=== PATIENT | female | born 1995 | race Caucasian/White ===

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

== ENCOUNTER → 2017-05-26 | Outpatient (CLI) | payer OTHER ==
[2017-05-29 17:08] LABS: VARICELLA ZOS VIR IGM AB <=0.90 (<=0.90)
== END | disposition home or self-care (01) ==
LOC: C.LAB 13:21
PROVIDERS: ATTEND Pediatrics
DX: Z00.00 Encounter for general adult medical examination without abnormal findings (principal)

== ENCOUNTER → 2017-05-31 | Outpatient (CLI) | payer OTHER | END | disposition home or self-care (01) | LOC: C.RDSM 14:51 | PROVIDERS: ATTEND Family Medicine | DX: M19.011 Primary osteoarthritis, right shoulder (principal) ==

== ENCOUNTER → 2017-07-14 | Outpatient (CLI) | payer OTHER ==
[~2017-07-14] MED LIST changes: +GADAVIST IV PRN
--- NOTE | 2017-07-14 13:48 | DIAGNOSTIC IMAGING REPORT ---
FLUOROSCOPICALLY GUIDED RIGHT SHOULDER ARTHROGRAM PRE-MRI CLINICAL HISTORY: Right shoulder pain COMPARISON STUDY: L radiographic study of the chromic clavicular joints dated 05/31/2017 FINDINGS: A timeout was performed. The risks the procedure were explained the patient and informed consent was obtained. Patient prepped and draped in sterile fashion. The skin was anesthetized 1% lidocaine. The 22-gauge spinal needle was introduced the joint capsule. A mixture of Optiray 300 and gadolinium was instilled under fluoroscopic guidance. Fluoroscopic spot film confirmed intra-articular location. 30 seconds of fluoroscopic time was utilized. A single fluoroscopic spot image was acquired. The patient's of the MRI suite for further imaging. IMPRESSION: Successful fluoroscopically guided right shoulder arthrogram pre-MRI Electronically signed by: Matt Navarrete M.D. 07/14/2017 1:47 PM Dictated Date/Time: 07/14/2017 1:45 PM
--- NOTE | 2017-07-14 14:09 | DIAGNOSTIC IMAGING REPORT ---
MRI ARTHROGRAM OF THE RIGHT SHOULDER CLINICAL HISTORY: Right shoulder pain and limited range of motion. Possible weightlifting injury. COMPARISON STUDY: Acromioclavicular joint radiographs May 31, 2017. TECHNIQUE: Following a fluoroscopically guided arthrogram and utilizing a 1.5 [place] magnet, multiplanar, multiecho imaging of the right shoulder was performed without intravenous contrast. FINDINGS: Alignment of the right shoulder is anatomic. There is no fracture or marrow replacement. No cartilage abnormality is present. Distention of the joint space is excellent. The glenoid labrum is intact. There is no rotator cuff tear. There is no contrast within the subacromial/subdeltoid bursa. The glenohumeral ligaments appear intact. The proximal long head of the biceps tendon is intact. No mass or fluid collection is shown adjacent to the right shoulder. IMPRESSION: Unremarkable MRI arthrogram of the right shoulder. No internal derangement identified. Electronically signed by: Easton Jo M.D. 07/14/2017 2:07 PM Dictated Date/Time: 07/14/2017 1:55 PM
== END | disposition home or self-care (01) ==
LOC: C.MRIBC 12:47
PROVIDERS: ATTEND Family Medicine
DX: S49.91XA Unspecified injury of right shoulder and upper arm, initial encounter (principal); S49.90XA Unspecified injury of shoulder and upper arm, unspecified arm, initial encounter; X58.XXXA Exposure to other specified factors, initial encounter

== ENCOUNTER → 2017-07-19 | Outpatient (CLI) | payer OTHER ==
[~2017-07-19] MED LIST changes: -GADAVIST IV PRN
== END | disposition home or self-care (01) ==
LOC: C.LABSPEC 16:38
PROVIDERS: ATTEND Physician Assistant
DX: Z30.430 Encounter for insertion of intrauterine contraceptive device (principal)

== ENCOUNTER → 2017-07-31 | Outpatient (CLI) | payer OTHER ==
[2017-08-02 10:25] LABS: VARICELLA ZOS VIR IGG VALUE 160.5 INDEX
== END | disposition home or self-care (01) ==
LOC: C.LABBFT 12:51
PROVIDERS: ATTEND Pediatrics
DX: Z00.00 Encounter for general adult medical examination without abnormal findings (principal)

== ENCOUNTER 2024-11-26 20:15 | Inpatient (IN) ==
[2024-11-26] MEDS ORDERED: LIDOCAINE 1% LOCAL 20 ML VIAL INFIL PRN (20:34)
[2024-11-26] MEDS: LACTATED RINGER'S 1,000 ML IV PRN (20:42)
--- NOTE | 2024-11-26 20:56 | History & Physical Report ---
Date of Service November 26, 2024 Assessment & Plan (1) SROM (spontaneous rupture of membranes): Plan: 29 yo at 38 5/7 wga presents w/ srom/labor VSS Fetus cat 1 Labor - augment prn GBS neg desires epidural History of Present Illness Chief Complaint: LOF Primary Care Provider: ALAYNA Hawkins 29 yo at 38 5/7 wga presents w/ SROM around 730pm and subsequent worsening of ctx. +FM and ctx, denies vb PNI: None Past staffing associate hx: G1 2022 G2 current regular cycles denies hx stis Allergies Allergy/AdvReac Type Severity Reaction Status Date / Time Penicillins Allergy Severe RASH AND Verified 11/26/24 20:44 SWELLING Sulfa (Sulfonamide Allergy Severe RASH AND Verified 11/26/24 20:44 Antibiotics) SWELLING amoxicillin AdvReac Severe RASH AND Verified 11/26/24 20:44 SWELLING cefdinir AdvReac Severe RASH AND Verified 11/26/24 20:44 SWELLING Home Medications Medication Instructions Recorded Confirmed Type prenat.vits,mimi,eue-goax-gowkl 1 tab PO DAILY 09/17/21 11/26/24 History pantoprazole 20 mg tablet,delayed 20 mg PO QAM #30 tabs 01/27/23 11/26/24 Rx release Saccharomyces boulardii [Probiotic PO 05/06/24 11/21/24 History (S.boulardii)] Patient History Medical History (Updated 11/26/24 @ 20:56 by Vee Alcazar MD) Varicella vaccination Chronic tonsillar hypertrophy Recurrent acute tonsillitis Lump of right breast Endometriosis Dysmenorrhea Arthralgia of hands, bilateral Left breast lump Abdominal pain Constipation Tenesmus Hernia Anxiety GERD (gastroesophageal reflux disease) Irritable bowel syndrome (IBS) Acne ADHD (attention deficit hyperactivity disorder) History of postoperative nausea and vomiting Hernia denies Anxiety IBS (irritable bowel syndrome) GERD (gastroesophageal reflux disease) ADHD History of COVID-05 Mar 2023 Tonsillitis reason for procedure History of ovarian cyst Frequent headaches Migraines Surgical History S/P laparoscopy History of esophagogastroduodenoscopy (EGD) History of colonoscopy H/O wisdom tooth extraction Family History Mother Rheumatoid arthritis Endometriosis Asthma Grandmother (Paternal) Ovarian cancer Grandmother (Maternal) Diabetes Hypertension Slow to wake up after anesthesia Grandfather (Maternal) Prostate cancer Denies family history of Crohn's disease Breast cancer Colorectal cancer Ulcerative colitis Social History Smoking Status: Never smoker Second Hand Exposure: No; Do You Dip or Chew Tobacco: No; Hx Alcohol Use: No Hx Substance Use: No Preferred Language: Taiwanese Communication Ability: Effective Visual Impairment: No Limitations Hearing Ability: Normal 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 Beliefs That Will Affect Care: None marital status: marital status details: Judd Giraldo (30) [phone] Current Living Situation: Spouse Current Living Situation Comment: lives with and child current occupational status: employed current occupation: [employer] Other Information That Helps Us Care for You: No Feels Safe at Home: Yes Safety Concerns: Feels Safe At This Time Childhood Exposure to Second-Hand Smoke: No Diet: regular during the past year weight has: remained stable Dental Care, Regularly: Yes Physical Activity Frequency: 5-6 Times per Week Seatbelt Use: always Sunscreen Use: Yes Assistive Devices: None Physical Exam Genitourinary: OB Exam Monitor Tracing: + external FHT monitor used, + external uterine monitor used (q3-4) and + category I (130/mod/+accel/-decel) SVE 4/90/-2 by RN, grossly ruptured Results & Data Vital Signs (Past 12 Hours) Vital Signs Temp Pulse Resp BP O2 Del Method 11/26/24 20:45 98.1 F 18 Room Air 11/26/24 20:30 81 135/70 Laboratory Results OB Labs: Blood Type A Positive 05/09/24 Antibody Screen NEGATIVE 05/09/24 Hgb 11.8 g/dl (12.0-16.0) L 09/11/24 Hct 34.3 % (37.0-47.0) L 09/11/24 MCV 93.0 fL (80.0-100.0) 05/09/24 Plt Count 221 K/uL (130-400) 05/09/24 VZV IgG Antibody 160.50 INDEX 07/31/17 Rubella IgG Antibody Immune (Immune) 05/09/24 RPR Nonreactive (Nonreactive) 09/24/21 Treponema pallidum Ab Negative (Negative) 09/11/24 Hep Bs Antigen Prelim Positive (Negative) A 05/09/24 Hep Bs Antigen NON-REACTIVE (NON-REACTIVE) 05/09/24 Hepatitis C Antibody Negative (Negative) 05/09/24 Hepatitis C Ab (EIA) NON-REACTIVE (NON-REACTIVE) 09/24/21 HIV 1&2 Ab/P24 Ag 4thGn Prelim Positive (Negative) A 05/09/24 HIV (1&2) Ag & Ab Conf NON-REACTIVE (NON-REACTIVE) 05/09/24 Glucose 1 Hr 50 gm 124 mg/dl (70-130) 09/11/24 Maternal Serum AFP 43.0 ng/mL 06/21/24 OB Optional Labs: Chlamydia trachomatis RNA Not Detected (NotDetected) 05/09/24 Neisseria gonorrhoeae RNA Not Detected (NotDetected) 05/09/24 Thyroid Stimulating Hormone (TSH) 0.907 uIu/ml (0.300-4.500) 01/31/19 Alpha Fetoprotein Triple Screen SEE NOTE 06/21/24 Labs Reviewed: cf/sma-negative prior --mln cfDNA low risk--mln GBS neg Diagnostic Findings posterior plac Coding Level of Care Code None Diagnoses SROM (spontaneous rupture of membranes)
[2024-11-26] MEDS ORDERED: BUPIVACAINE 0.25% PF 30 ML VIAL EPI PRN (21:07)
[2024-11-26] MEDS ORDERED: NALOXONE HCL 0.4 MG/1 ML VIAL/CARP IV PRN (21:07)
[2024-11-26] MEDS ORDERED: ROPIVACAINE 0.5% PF 5 MG/ML 20 ML VIAL EPI PRN (21:07)
[2024-11-26] MEDS ORDERED: LIDOCAINE 2% MPF LOCAL 5 ML VIAL EPI PRN (21:07)
[2024-11-26] MEDS ORDERED: diphenhydrAMINE 50 MG/ML VIAL IV PRN (21:07)
[2024-11-26] MEDS ORDERED: NALBUPHINE HCL INJ 10 MG/ML AMP IV PRN (21:07)
[2024-11-26] MEDS ORDERED: NALOXONE HCL 1 MG in SODIUM CHLORIDE 0.9% 1,000 ML IV PRN (21:07)
[2024-11-26] MEDS ORDERED: SODIUM CHLORIDE 0.9% PF INJ 10 ML VIAL EPI PRN (21:07)
--- NOTE | 2024-11-26 21:07 | Anesthesiology Consultation ---
Date of Service November 26, 2024 Assessment & Plan (1) Encounter for pre-operative examination: Chart Review Chart Review: Patient NOT seen in Pre Admission Testing and Acceptable Risk for Labor Epidural Consults Requested none History Height/Weight Height: 5 ft 3 in Weight: 77.564 kg Allergies Allergy/AdvReac Type Severity Reaction Status Date / Time Penicillins Allergy Severe RASH AND Verified 11/26/24 20:44 SWELLING Sulfa (Sulfonamide Allergy Severe RASH AND Verified 11/26/24 20:44 Antibiotics) SWELLING amoxicillin AdvReac Severe RASH AND Verified 11/26/24 20:44 SWELLING cefdinir AdvReac Severe RASH AND Verified 11/26/24 20:44 SWELLING Medications Home Medications Medication Instructions Recorded Confirmed Last Taken prenat.vits,mimi,yoy-btth-xueck 1 tab PO DAILY 09/17/21 11/26/24 11/26/24 pantoprazole 20 mg tablet,delayed 20 mg PO QAM #30 tabs 01/27/23 11/26/24 11/26/24 release Saccharomyces boulardii [Probiotic PO 05/06/24 11/21/24 Unknown (S.boulardii)] Active Medications Generic Name Dose Route Start Last Admin Trade Name Freq PRN Reason Stop Dose Admin Lactated Ringer's 1,000 mls @ 125 mls/hr 11/26/24 20:34 11/26/24 20:42 Lr IV 11/28/24 20:33 999 mls/hr .Q8H PRN Administration L&D Protocol Protocol Past Medical History Medical History Varicella vaccination Chronic tonsillar hypertrophy Recurrent acute tonsillitis Lump of right breast Endometriosis Dysmenorrhea Arthralgia of hands, bilateral Left breast lump Abdominal pain Constipation Tenesmus Hernia Anxiety GERD (gastroesophageal reflux disease) Irritable bowel syndrome (IBS) Acne ADHD (attention deficit hyperactivity disorder) History of postoperative nausea and vomiting Hernia denies Anxiety IBS (irritable bowel syndrome) GERD (gastroesophageal reflux disease) ADHD History of COVID-05 Mar 2023 Tonsillitis reason for procedure History of ovarian cyst Frequent headaches Migraines Past Family History Family History Mother Rheumatoid arthritis Endometriosis Asthma Grandmother (Paternal) Ovarian cancer Grandmother (Maternal) Diabetes Hypertension Slow to wake up after anesthesia Grandfather (Maternal) Prostate cancer Denies family history of Crohn's disease Breast cancer Colorectal cancer Ulcerative colitis Past Surgical History Surgical History S/P laparoscopy History of esophagogastroduodenoscopy (EGD) History of colonoscopy H/O wisdom tooth extraction Social History Smoking Status: Never smoker Do You Dip or Chew Tobacco: No Hx Alcohol Use: No Alcohol type: wine and hard liquor alcohol intake frequency: a few times a month Hx Substance Use: No substance use type: does not use Physical Exam Vital Signs Last Vital Signs Temp 98.1 F 11/26/24 20:45 Pulse 87 11/26/24 21:03 Resp 18 11/26/24 20:45 BP 135/70 11/26/24 20:30 Pulse Ox 96 11/26/24 21:03 O2 Del Method Room Air 11/26/24 20:45
[2024-11-26 21:11] LABS: Hematocrit (blood only) 35.9 % (37.0-47.0); Hemoglobin 12.5 g/dl (12.0-16.0); Mean Corpuscular Hemoglobin 32.4 pg (25.0-34.0); Mean Corpuscular Volume 93.0 fL (80.0-100.0); Platelet Count 164 K/uL (130-400); RDW Standard Deviation 45.6 fL (36.4-46.3); Red Blood Count 3.86 M/uL (4.20-5.40); White Blood Count 12.45 K/ul (4.8-10.8)
[2024-11-26] MEDS: ONDANSETRON INJ 2 MG/ML 2 ML VIAL IV PRN (21:12)
[2024-11-26] MEDS: BUPIVACAINE 0.25% PF 30 ML VIAL ONE (21:24)
[2024-11-26] MEDS: fentANYL 2 MCG/ML BUPIVacaine 0.125%-NSS 100ML BAG EPI PRN (21:26)
[2024-11-26] MEDS: SODIUM CHLORIDE 0.9% PF INJ 10 ML VIAL ONE (21:51)
[2024-11-26] MEDS: fentANYL 2 MCG/ML BUPIVacaine 0.125%-NSS 100ML BAG ONE (21:51)
[2024-11-26] MEDS: ONDANSETRON INJ 2 MG/ML 2 ML VIAL ONE (21:52)
[2024-11-26] MEDS: LIDOCAINE 2%/EPINEPHRINE 1:200,000 20 ML PF ONE (21:52)
[2024-11-26] MEDS: BUPIVACAINE 0.25% PF 30 ML VIAL EPI STA (21:52)
[2024-11-26] MEDS: LIDOCAINE 2%/EPINEPHRINE 1:200,000 20 ML PF EPI STA (21:52)
[2024-11-26] MEDS: SODIUM CHLORIDE 0.9% PF INJ 10 ML VIAL EPI STA (21:52)
[2024-11-26] MEDS ORDERED: OXYTOCIN 30 UNITS/NSS 30 UNITS/500 ML BAG IV PRN (22:00)
[2024-11-26] MEDS: OXYTOCIN 30 UNITS/NSS 30 UNITS/500 ML BAG IV PRN (23:49)
--- NOTE | 2024-11-27 00:01 | Delivery Summary ---
Vaginal Delivery Summary Date of Service November 26, 2024 Vaginal Delivery Summary [facility] PREOPERATIVE DIAGNOSIS: 1. Single intrauterine at 38 5/7 wga 2. SROM POSTOPERATIVE DIAGNOSIS: 1. Single intrauterine at 38 5/7 wga 2. SROM 3. Delivered PROCEDURE: 1. Normal spontaneous vaginal delivery. SURGEON: Vee Alcazar MD ANESTHESIA: Epidural. QUANTITATIVE BLOOD LOSS: 150 mL FLUIDS: Continuous LR. URINE OUTPUT: 600cc by straight cath after procedure COMPLICATIONS: None. CONDITION: Stable. INDICATIONS: 29 yo at 38 5/7 wga presented with srom and 4cm on arrival. She received an epidural for pain control and progressed to complete and desired to push FINDINGS: A viable male , weight pending with Apgars of 8 and 9 at 1 and 5 minutes respectively. SPECIMEN: Cord blood OPERATIVE REPORT: The patient progressed to 10 cm, 100% effaced and +2 station, pushed over intact perineum with anesthesia to deliver a viable male infant, weight and Apgars as above. Head of delivered in THERESA position. No nuchal cord was present. Body and shoulders were delivered without difficulty. was delivered to maternal abdomen and nursing staff. Delayed cord clamping was performed for 60 seconds. Cord was clamped and cut. Cord blood was obtained. Placenta delivered spontaneously intact with 3-vessel cord. IV oxytocin and fundal massage were given for excellent hemostasis. Vagina, cervix, perineum, and placenta were inspected. No lacerations were noted. Sponge and needle counts correct x2. No sponges were left behind. Mother and stable in immediate period. [facility] Vaginal Delivery Charge Vaginal Delivery Codes: 73659 global code for the antepartum, delivery, and post- Delivery Type Details: [facility]
[2024-11-27] MEDS ORDERED: HYDROCORTISONE ACETATE 25 MG SUPP PR PRN (00:23)
[2024-11-27] MEDS ORDERED: IBUPROFEN 600 MG TAB PO PRN (00:23)
[2024-11-27] MEDS ORDERED: BENZOCAINE 20% SPRY 85 APPLN/85 GM CAN EXT PRN (00:23)
[2024-11-27] MEDS ORDERED: ACETAMINOPHEN 325 MG TAB PO PRN (00:23)
[2024-11-27] MEDS ORDERED: OXYTOCIN 30 UNITS/NSS 30 UNITS/500 ML BAG IV PRN (00:23)
[2024-11-27] MEDS: DIPHTHER/TETAN/PERTUS Vaccine (Tdap, Adol/Adult) 0.5mL IM ONE (02:08)
--- NOTE | 2024-11-27 06:30 | Obstetrical Progress Note ---
Date of Service November 27, 2024 Assessment & Plan (1) care and examination: Plan: Patient is post status , post day 1. Patient is currently stable. Due to patient delivering last night at 11:45pm, will plan to discharge either tomorrow or on 11/29. Admission and Anticipated Discharge Date Admission Date: November 26, 2024 Supervising Physician Co-Signing Physician Notes Resident Physician Supervision Note: I interviewed and examined the patient. Discussed with Dr. Chavez and agree with findings and plan as documented in the note. Any exceptions or clarifications are listed here: PP1 s/p , doing well. Continue routine care Documented By: Vee Alcazar MD Subjective 29 yo post- day 1 s/p [] Ambulation: ambulating normally Voiding: no voiding problems Passing Gas:: Yes Diet Tolerance:: Has not eaten yet due to delivery at around 11:45pm on 11/26. Feeding Type:: breast feeding Current Pain Level: 0/10 Resting comfortably this AM in NAD. Denies fevers/chills, ZIEGLER, CP/palp, SOB/cough/wheezing, N/V, LE pain, breast pain/dschrg, UTI Sx. Review of Systems Review of Systems: as per subjective HPI Physical Exam Constitutional: WD/WN, vitals as above Respiratory: normal respiratory effort, lungs clear to auscultation Cardiovascular: Rate/Rhythm: regular rate and regular rhythm Heart Sounds: normal S1 and normal S2; no murmur Extremities: + edema (trace in LE b/l); no calf tenderness Gastrointestinal (Abdomen): Percussion/Palpation: + abdomen tender (RLQ) Skin: no rashes, warm and dry Psychiatric: Eye Contact: good eye contact Speech: normal rate/rhythm/volume of speech Thought Process: linear/logical thought process Genitourinary: uterus is firm and @ level of umbilicus. Results & Data Vital Signs (Past 12 Hours) Vital Signs Temp Pulse Pulse Resp BP BP Pulse Ox 11/27/24 03:00 36.7 C 63 16 108/72 99 11/27/24 02:02 69 99/56 L 11/27/24 02:00 18 11/27/24 01:55 67 96/53 L 11/27/24 01:40 58 L 98/54 L 11/27/24 01:25 18 11/27/24 01:25 69 108/57 L 11/27/24 01:10 64 104/56 L 11/27/24 00:55 18 11/27/24 00:55 71 108/55 L 11/27/24 00:40 18 11/27/24 00:40 71 113/57 L 11/27/24 00:25 18 11/27/24 00:25 71 120/55 L 11/27/24 00:11 86 140/58 L 11/27/24 00:10 18 11/26/24 23:55 86 115/64 11/26/24 23:55 18 11/26/24 23:48 93 H 116/68 11/26/24 23:45 104 H 92 11/26/24 23:43 93 H 100 11/26/24 23:38 90 99 11/26/24 23:34 73 114/60 11/26/24 23:33 76 97 11/26/24 23:30 18 11/26/24 23:30 18 11/26/24 23:28 77 96 11/26/24 23:23 89 99 11/26/24 23:19 77 116/63 11/26/24 23:18 68 96 11/26/24 23:13 81 98 11/26/24 23:08 74 97 11/26/24 23:03 96 11/26/24 23:03 73 11/26/24 23:03 65 107/57 L 11/26/24 23:00 18 11/26/24 23:00 18 11/26/24 22:58 81 99 11/26/24 22:53 73 99 11/26/24 22:48 63 106/59 L 97 11/26/24 22:43 63 96 11/26/24 22:38 71 98 11/26/24 22:34 71 111/61 11/26/24 22:33 77 97 11/26/24 22:30 18 11/26/24 22:30 18 11/26/24 22:28 70 98 11/26/24 22:27 18 11/26/24 22:27 36.7 C 18 11/26/24 22:23 81 98 11/26/24 22:19 87 105/58 L 11/26/24 22:18 84 99 11/26/24 22:13 82 100 11/26/24 22:08 75 98 11/26/24 22:03 98 11/26/24 22:03 98 H 11/26/24 22:03 84 97/52 L 11/26/24 22:00 18 11/26/24 22:00 18 11/26/24 21:58 81 99 11/26/24 21:53 94 H 99 11/26/24 21:49 77 110/54 L 11/26/24 21:48 76 96 11/26/24 21:43 91 H 100 11/26/24 21:38 88 98 11/26/24 21:33 88 99 11/26/24 21:32 88 100/59 L 11/26/24 21:30 82 96/53 L 11/26/24 21:28 82 92/54 L 99 11/26/24 21:26 84 100/58 L 11/26/24 21:24 81 99/58 L 11/26/24 21:23 82 98 11/26/24 21:22 83 110/61 11/26/24 21:20 78 112/66 11/26/24 21:18 100 11/26/24 21:18 80 11/26/24 21:18 82 118/70 11/26/24 21:13 78 100 11/26/24 21:08 91 H 100 11/26/24 21:03 87 96 11/26/24 20:45 36.7 C 18 11/26/24 20:30 81 135/70 O2 Del Method 11/27/24 03:00 Room Air 11/27/24 02:02 11/27/24 02:00 11/27/24 01:55 11/27/24 01:40 11/27/24 01:25 11/27/24 01:25 11/27/24 01:10 11/27/24 00:55 11/27/24 00:55 11/27/24 00:40 11/27/24 00:40 11/27/24 00:25 11/27/24 00:25 11/27/24 00:11 11/27/24 00:10 11/26/24 23:55 11/26/24 23:55 11/26/24 23:48 11/26/24 23:45 11/26/24 23:43 11/26/24 23:38 11/26/24 23:34 11/26/24 23:33 11/26/24 23:30 11/26/24 23:30 11/26/24 23:28 11/26/24 23:23 11/26/24 23:19 11/26/24 23:18 11/26/24 23:13 11/26/24 23:08 11/26/24 23:03 11/26/24 23:03 11/26/24 23:03 11/26/24 23:00 11/26/24 23:00 11/26/24 22:58 11/26/24 22:53 11/26/24 22:48 11/26/24 22:43 11/26/24 22:38 11/26/24 22:34 11/26/24 22:33 11/26/24 22:30 11/26/24 22:30 11/26/24 22:28 11/26/24 22:27 11/26/24 22:27 11/26/24 22:23 11/26/24 22:19 11/26/24 22:18 11/26/24 22:13 11/26/24 22:08 11/26/24 22:03 11/26/24 22:03 11/26/24 22:03 11/26/24 22:00 11/26/24 22:00 11/26/24 21:58 11/26/24 21:53 11/26/24 21:49 11/26/24 21:48 11/26/24 21:43 11/26/24 21:38 11/26/24 21:33 11/26/24 21:32 11/26/24 21:30 11/26/24 21:28 11/26/24 21:26 11/26/24 21:24 11/26/24 21:23 11/26/24 21:22 11/26/24 21:20 11/26/24 21:18 11/26/24 21:18 11/26/24 21:18 11/26/24 21:13 11/26/24 21:08 11/26/24 21:03 11/26/24 20:45 Room Air 11/26/24 20:30 Laboratory Results 08/12/25 Range/Units 20:51 WBC 12.45 H (4.8-10.8) K/ul RBC 3.86 L (4.20-5.40) M/uL Hgb 12.5 (12.0-16.0) g/dl Hct 35.9 L (37.0-47.0) % MCV 93.0 (80.0-100.0) fL MCH 32.4 (25.0-34.0) pg MCHC 34.8 (32.0-36.0) g/dL RDW Std Deviation 45.6 (36.4-46.3) fL RDW Coeff of Christofer 13.4 (11.5-14.5) % Plt Count 164 (130-400) K/uL MPV 10.2 (9.4-12.4) fL Treponema pallidum Ab Negative (Negative)
--- NOTE | 2024-11-27 07:12 | Anesthesia Procedure Note ---
Date of Service November 27, 2024 Anesthesia Post Epidural Note Vital Signs Vital Signs: Temp Pulse Resp BP Pulse Ox O2 Del Method 36.7 C 63 16 108/72 99 Room Air 11/27/24 03:00 11/27/24 03:00 11/27/24 03:00 11/27/24 03:00 11/27/24 03:00 11/27/24 03:00 Notes Mental Status: alert / awake / arousable and participated in evaluation Nausea / Vomiting: adequately controlled Pain: adequately controlled Airway Patency, RR, SpO2: stable & adequate BP & HR: stable & adequate Hydration State: stable & adequate Neuraxial Anesthesia: was administered and sensory block is resolving Anesthetic Complications: no major complications apparent and Pt Satisfied with anesthetic care Epidural: Removed without complications and With tip intact
[2024-11-27] MEDS: DOCUSATE SODIUM 100 MG CAP PO SCH (08:56)
[2024-11-27] MEDS: PRENATAL VITAMIN 1 TAB PO SCH (08:56)
[2024-11-27] MEDS: HYDROCORTISONE 2.5% CR 30 GM TUBE EXT PRN (16:08)
--- NOTE | 2024-11-28 06:26 | Obstetrical Progress Note ---
Date of Service November 28, 2024 Assessment & Plan (1) care and examination: Plan: Patient is post status , post day 2. Patient is currently stable. Patient desires to go home today. Patient will be discharged today. Admission and Anticipated Discharge Date Admission Date: November 26, 2024 Supervising Physician Co-Signing Physician Notes Resident Physician Supervision Note: I interviewed and examined the patient. Discussed with Dr. Chavez and agree with findings and plan as documented in the note. Any exceptions or clarifications are listed here: [ ] Documented By: Ester Torres MD, FACOG Subjective 29 yo post- day 2 s/p [] Ambulation: ambulating normally Voiding: no voiding problems Passing Gas:: Yes Diet Tolerance:: Tolerating regular diet Feeding Type:: breast feeding Current Pain Level: Has hemorrhoidal pain which she gives a 4/10. Resting comfortably this AM in NAD. Denies fevers/chills, ZIEGLER, CP/palp, SOB/cough/wheezing, N/V, LE pain, breast pain/dschrg, UTI Sx. Review of Systems Review of Systems: as per subjective HPI Physical Exam Constitutional: WD/WN, vitals as above Respiratory: normal respiratory effort, lungs clear to auscultation Cardiovascular: Rate/Rhythm: regular rate and regular rhythm Heart Sounds: normal S1 and normal S2; no murmur Extremities: + edema (trace in LE b/l); no calf tenderness Gastrointestinal (Abdomen): Percussion/Palpation: abdomen soft; abdomen nontender (RLQ) Skin: no rashes, warm and dry Psychiatric: Eye Contact: good eye contact Speech: normal rate /rhythm/volume of speech Thought Process: linear/logical thought process Genitourinary: uterus is firm and @ level of umbilicus Results & Data Vital Signs (Past 12 Hours) Vital Signs Temp Pulse Resp BP Pulse Ox O2 Del Method 11/28/24 05:00 36.8 C 60 16 105/70 100 Room Air 11/27/24 20:30 36.8 C 53 L 16 102/59 L 98 Room Air Laboratory Results Lab Results 11/26/24 Range/Units 20:51 WBC 12.45 H (4.8-10.8) K/ul RBC 3.86 L (4.20-5.40) M/uL Hgb 12.5 (12.0-16.0) g/dl Hct 35.9 L (37.0-47.0) % MCV 93.0 (80.0-100.0) fL MCH 32.4 (25.0-34.0) pg MCHC 34.8 (32.0-36.0) g/dL RDW Std Deviation 45.6 (36.4-46.3) fL RDW Coeff of Christofer 13.4 (11.5-14.5) % Plt Count 164 (130-400) K/uL MPV 10.2 (9.4-12.4) fL Treponema pallidum Ab Negative (Negative)
[2024-11-28 08:09] VITALS: BP 108/67; PULSE 75; RESP 18; TEMP 98.6; O2SAT 97
== END 2024-11-28 11:44 | disposition home or self-care (01) | DRG 807 ==
LOC: OPB 20:15 → 4S1 20:16 → 4E2 11-27 02:50